=== PATIENT | female | born 1995 ===

== ENCOUNTER → 2019-03-05 | Outpatient (CLI) | payer OTHER | END | disposition home or self-care (01) | LOC: PRENATAL 11:00 | DX: O99.89 Other specified diseases and conditions complicating pregnancy, childbirth and the puerperium (principal); O09.92 Supervision of high risk pregnancy, unspecified, second trimester ==

== ENCOUNTER → 2019-04-14 | Outpatient (CLI) | payer OTHER | END | disposition home or self-care (01) | LOC: PRENATAL 08:00 | DX: O36.8131 Decreased fetal movements, third trimester, fetus 1 (principal); O26.843 Uterine size-date discrepancy, third trimester; O99.89 Other specified diseases and conditions complicating pregnancy, childbirth and the puerperium ==